=== PATIENT | male | born 1955 | race African-American/Black ===

== ENCOUNTER 2016-07-17 20:35 | Emergency (ER) | payer OTHER ==
[2016-07-17 21:00] VITALS: BP 125/90; PULSE 94; TEMP 97.8; BMI 32.3
--- NOTE | 2016-07-17 21:00 | PDOC ---
*Physical Exam - Vital Signs Last Vital Signs Temp Pulse Resp BP Pulse Ox 97.8 F 94 H 20 125/90 98 07/17/16 20:45 07/17/16 20:45 07/17/16 20:45 07/17/16 20:45 07/17/16 20:45 - Physical Exam Comments: 07/17/16 20:47. 6o yo M presents to the ER c/o uncontrolled DM. Pt was seen at [facility] ([phone]) today and was sent to the ER with lab results of: Glucose(non fasting): >500mg/dl HB.1 g/dl Pt says he also felt dizzy (room slowly spinning) which started ~10 mins prior to his arrival to the ER. Pt denies any lightheadedness, garcia, visual disturbance, cp, sob, abd pain, polydipsia, polyphagia, polyuria PMD: Dr. Ann Marie Camacho [phone] Pt's PMD recently relocated to the and is inconvenient for him and will need a PMD and Endocrinology referral DM x2 years: currently on Metformin 500HCL bid/took 1000mg this evening Hyperlipidemia: Atrovastin 20mg dq HTN: Amlodipine 10-20mg qd ASA 81mg ED Treatment Course - LABORATORY CBC & Chemistry Diagram: 07/17/16 21:15 07/17/16 21:15 *DC/Admit/Observation/Transfer Diagnosis at time of Disposition: Hyperglycemia due to type 2 diabetes mellitus - Discharge Dispostion Disposition: HOME - Referrals Referrals: Christel Niño MD [Staff Physician] - Nathanael Booth MD [Staff Physician] - - Patient Instructions Printed Discharge Instructions: DI for Hyperglycemia -- Adult Additional Instructions: Please follow up with Dr. Niño and Dr. Booth for further evalulation and management of your diabetes. You must follow up within the next 2 days. If you experience any shortness of breath, chest pain, headache, dizziness, or any new or worsening symptoms, please return to the ER. - Post Discharge Activity Work/School Note: Back to Work
[2016-07-17 21:25] LABS: BASOPHIL 0.9 % (0-2.0); EOSINOPHIL 1.5 % (0-4.5); MCH 26.8 pg (25.7-33.7); NEUTROPHILS 58.4 % (42.8-82.8); RDW 14.7 % (11.9-15.9)
[2016-07-17 21:27] LABS: URINE APPEARANCE CLEAR; URINE BILIRUBIN NEGATIVE (NEGATIVE); URINE COLOR COLORLESS; URINE GLUCOSE (UA) 3+ (NEGATIVE); URINE KETONE NEGATIVE (NEGATIVE); URINE LEUK ESTERASE NEGATIVE (NEGATIVE); URINE NITRITE NEGATIVE (NEGATIVE); URINE PROTEIN NEGATIVE (NEGATIVE); URINE UROBILINOGEN NEGATIVE E.U./dl (0.2-1.0)
--- NOTE | 2016-07-17 21:42 | PDOC ---
History of Present Illness - General Chief Complaint: Blood Sugar Problem Stated Complaint: SUGAR PROBLEMS Time Seen by Provider: 07/17/16 20:46 - History of Present Illness Initial Comments: 07/17/16 21:34 CHIEF COMPLAINT: elevated sugar HISTORY OF PRESENT ILLNESS: 60 yo M with hx of NIDDM, HTN sent from urgent care for elevated sugar in urine. Patient states he checks his blood sugar every day and recently it has gotten higher. He went to urgent care today and had a BGM of 280 and glucose in his urine and was sent to this ED for evaluation. He denies any nausea, SOB, chest pain, dizziness, headache, changes in vision. No recent travel or sick contacts. PAST MEDICAL HISTORY: Denies past medical history FAMILY HISTORY: Denies SOCIAL HISTORY: Denies tobacco, alcohol, illicit drug use. SURGICAL HISTORY: Denies ALLERGIES: No known drug allergies REVIEW OF SYSTEMS General/Constitutional: Denies fever or chills. Denies weakness, weight change. HEENT: Denies change in vision. Denies ear pain or discharge. Denies sore throat. Cardiovascular: Denies chest pain or shortness of breath. Respiratory: Denies cough, wheezing, or hemoptysis. Gastrointestinal: Denies nausea, vomiting, diarrhea or constipation. Denies rectal bleeding. Genitourinary: Denies dysuria, frequency, or change in urination. Musculoskeletal: Denies joint or muscle swelling or pain. Denies neck or back pain. Skin and breasts: Denies rash or easy bruising. Neurologic: Denies headache, vertigo, loss of consciousness, or loss of sensation. PHYSICAL EXAM General Appearance: Well-appearing, appropriately dressed. No apparent distress. HEENT: EOMI, PERRLA, normal voice,=. No conjunctival pallor. No photophobia, scleral icterus. Respiratory/Chest: Lungs CTAB. Cardiovascular: RRR. S1, S2. Gastrointestinal/Abdominal: Normal bowel sounds. Abdomen soft, non-distended. No tenderness or rebound tenderness. Musculoskeletal/Extremities: Normal inspection. FROM of all extremities, normal capillary refill. No tenderness to extremities, pedal edema, swelling, erythema or deformity. Integumentary: Appropriate color, dry, warm. 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 Fully oriented, alert. Appropriate mood/affect. Motor strength 5/5. No appreciable EOM palsy, facial droop or sensory deficit. 07/18/16 06:12 07/18/16 06:14 Past History - Past Medical History Allergies/Adverse Reactions: Allergies Allergy/AdvReac Type Severity Reaction Status Date / Time No Known Allergies Allergy Verified 07/17/16 20:41 Home Medications: Ambulatory Orders Aspirin Coated [Ecotrin -] 81 mg PO DAILY 07/23/13 Fenofibrate [Lipofen] 150 mg PO DAILY 07/23/13 Olmesartan/Hydrochlorothiazide [Benicar Hct 20-12.5 mg Tablet] 1 each PO DAILY 07/23/13 Pantoprazole Sodium 20 mg PO DAILY 07/23/13 Sitagliptin Phos/Metformin HCl [Janumet 50-500 mg Tablet] 1 each PO BID Diabetes: Yes HTN: Yes Hypercholesterolemia: Yes - Surgical History Abdominal Surgery: Yes Appendectomy: Yes - Psycho/Social/Smoking Cessation Hx Anxiety: No Suicidal Ideation: No Smoking Status: No Smoking History: Never smoked Number of Cigarettes Smoked Daily: 0 *Physical Exam - Vital Signs Last Vital Signs Temp Pulse Resp BP Pulse Ox 97.8 F 94 H 20 125/90 98 07/17/16 20:45 07/17/16 20:45 07/17/16 20:45 07/17/16 20:45 07/17/16 20:45 ED Treatment Course - LABORATORY CBC & Chemistry Diagram: 07/17/16 21:15 07/17/16 21:15 - ADDITIONAL ORDERS Additional order review: 07/17/16 21:15 RBC 5.52 MCV 81.0 MCHC 33.0 RDW 14.7 MPV 11.0 Neutrophils % 58.4 Lymphocytes % 31.5 D Monocytes % 7.7 Eosinophils % 1.5 D Basophils % 0.9 Medical Decision Making - Medical Decision Making 07/18/16 06:14 60 yo M with hx of NIDDM, HTN sent from urgent care for elevated sugar in urine. 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 Patient verbalized understanding and agrees to plan. 07/18/16 06:15 *DC/Admit/Observation/Transfer Diagnosis at time of Disposition: Hyperglycemia due to type 2 diabetes mellitus Qualifiers: Diabetes mellitus mcfp insulin use: without mcfp use Qualified Code(s ): E11.65 - Type 2 diabetes mellitus with hyperglycemia - Discharge Dispostion Admit: No - Referrals Referrals: Christel Niño MD [Staff Physician] - Nathanael Booth MD [Staff Physician] - - Patient Instructions Printed Discharge Instructions: DI for Hyperglycemia -- Adult Additional Instructions: Please follow up with Dr. Niño and Dr. Booth for further evalulation and management of your diabetes. You must follow up within the next 2 days. If you experience any shortness of breath, chest pain, headache, dizziness, or any new or worsening symptoms, please return to the ER. - Post Discharge Activity Work/School Note: Back to Work
[2016-07-17 21:58] LABS: ALBUMIN 4.2 g/dl (3.4-5.0); ALK PHOS 81 U/L (45-117); ANION GAP 10 (8-16); BILIRUBIN,TOTAL 1.2 mg/dL (0.2-1.0); CALCIUM 9.4 mg/dL (8.5-10.1); CO2 28 mmol/L (21-32); CREATININE 1.1 mg/dL (0.7-1.3); GLUCOSE,RANDOM 252 mg/dL (74-106); SGOT/AST 23 U/L (15-37); SGPT/ALT 36 U/L (12-78); TOT PROT 7.8 g/dl (6.4-8.2)
[2016-07-17 22:03] LABS: PLATELET COUNT 126 K/MM3 (134-434); URINE BLOOD 1+ (NEGATIVE)
[2016-07-17 22:04] LABS: PLATELET COMMENT2 FEW LARGE PLTS; PLATELET ESTIMATE SLT DECREASED (NORMAL); URINE WBC <1 /hpf (3-5)
[2016-07-17] MEDS ORDERED: POTASSIUM CHLORIDE TABS 20 MEQ TABLET.ER (FP) PO ONE ×3 (22:30→22:40)
== END 2016-07-17 22:51 | disposition home or self-care (01) ==
LOC: JER 20:35
DX: E11.65 Type 2 diabetes mellitus with hyperglycemia (principal); Z79.84 Long term (current) use of oral hypoglycemic drugs; I10 Essential (primary) hypertension
CPT/HCPCS: 36415; 80053; 81003; 81015; 85025; 99281-25

== ENCOUNTER 2018-02-28 20:24 | Emergency (ER) | payer OTHER ==
[2018-02-28 20:34] VITALS: TEMP 97.6; BMI 32.3
--- NOTE | 2018-02-28 20:34 | PDOC ---
Rapid Medical Evaluation Time Seen by Provider: 02/28/18 20:32 Medical Evaluation: Allergies Allergy/AdvReac Type Severity Reaction Status Date / Time No Known Allergies Allergy Verified 07/17/16 20:41 02/28/18 20:32 I have performed a brief in-person evaluation of the patient The patient presents with a chief complaint of: elevated blood sugar. Patient reports elevated blood sugar of 300s at 8pm. Denies thirst, increase urination, dizziness or blurred vision Pertinent physical exam findings are: NAD even and unlabored breathing heart s1s2 no pedal edema I have ordered the following: labs, fingerstick urinalysis The patient will proceed to the ED for further evaluation.
[2018-02-28 21:14] LABS: EOS % 3.6 % (0-4.5); HEMATOCRIT 51.2 % (35.4-49); HEMOGLOBIN 16.6 GM/dL (11.7-16.9); MCH 26.9 pg (25.7-33.7); MCHC 32.5 g/dl (32.0-35.9); MEAN CELL VOLUME 82.7 fl (80-96); MEAN PLT VOLUME 11.1 fl (7.5-11.1); MONO % 6.4 % (3.8-10.2); RDW 14.8 % (11.9-15.9); WHITE BLOOD COUNT 5.1 K/mm3 (4.0-10.0)
[2018-02-28 21:44] LABS: ALBUMIN 4.4 g/dl (3.4-5.0); ALK PHOS 95 U/L (45-117); ANION GAP 14 MMOL/L (8-16); BILIRUBIN,TOTAL 0.5 mg/dL (0.2-1); BLOOD UREA NITROGEN 9 mg/dL (7-18); CALCIUM 10.6 mg/dL (8.5-10.1); CHLORIDE 98 mmol/L (98-107); CO2 25 mmol/L (21-32); CREATININE 1.1 mg/dL (0.55-1.3); POTASSIUM 3.4 mmol/L (3.5-5.1); SGOT/AST 17 U/L (15-37); SGPT/ALT 31 U/L (13-61); SODIUM 136 mmol/L (136-145); TOT PROT 8.8 g/dl (6.4-8.2)
[2018-02-28 21:46] LABS: GLUCOSE,RANDOM 301 mg/dL (74-106)
--- NOTE | 2018-02-28 21:48 | PDOC ---
History of Present Illness - General Chief Complaint: Blood Sugar Problem Stated Complaint: DIABETIC, LOWER SUGAR Time Seen by Provider: 02/28/18 20:32 - History of Present Illness Initial Comments: 62 yo M w a hx of DM, CAD, hypertension, and hypercholesterolemia is here after a self measured glucose reading around 300. Here in the ED the patients glucose is 301. Patient came into the ED bc he thought his sugar is too high. He says his usual daily blood sugar readings are around 150, but today it was high. He has no hx of DKA or HHNS. He says his only diabetes medication is metformin and he has been compliant with his meds. He has no physical complaints. Denies headache, abdominal pain, SOB, difficulty breathing, chest pain, back pain, visionary changes, polyuria, polydipsia, dysuria, frequency, urgency, recent fevers, chills, or infections. Social hx: patient denies smoking, drinking or illicit drug use. Past History - Past Medical History Allergies/Adverse Reactions: Allergies Allergy/AdvReac Type Severity Reaction Status Date / Time No Known Allergies Allergy Verified 02/28/18 20:34 Home Medications: Ambulatory Orders Aspirin Coated [Ecotrin -] 81 mg PO DAILY 07/23/13 Fenofibrate [Lipofen] 150 mg PO DAILY 07/23/13 Olmesartan/Hydrochlorothiazide [Benicar Hct 20-12.5 mg Tablet] 1 each PO DAILY 07/23/13 Pantoprazole Sodium 20 mg PO DAILY 07/23/13 Sitagliptin Phos/Metformin HCl [Janumet 50-500 mg Tablet] 1 each PO BID COPD: No Diabetes: Yes HTN: Yes Hypercholesterolemia: Yes - Surgical History Abdominal Surgery: Yes Appendectomy: Yes - Suicide/Smoking/Psychosocial Hx Smoking Status: No Smoking History: Never smoked Number of Cigarettes Smoked Daily: 0 Review of Systems - Review of Systems Comments:: 02/28/18 22:09 CONSTITUTIONAL: Absent: fever, chills, diaphoresis, generalized weakness, malaise, loss of appetite HEENT: Absent: rhinorrhea, nasal congestion, throat pain, throat swelling, difficulty swallowing, mouth swelling, ear pain, eye pain, visual Changes CARDIOVASCULAR: Absent: chest pain, syncope, palpitations, irregular heart rate, lightheadedness , peripheral edema RESPIRATORY: Absent: cough, shortness of breath, dyspnea with exertion, orthopnea, wheezing, stridor, hemoptysis GASTROINTESTINAL: Absent: abdominal pain, abdominal distension, nausea, vomiting, diarrhea, constipation, melena, hematochezia GENITOURINARY: Absent: dysuria, frequency, urgency, hesitancy, hematuria, flank pain, genital pain MUSCULOSKELETAL: Absent: myalgia, arthralgia, joint swelling SKIN: Absent: rash, itching, pallor HEMATOLOGIC/IMMUNOLOGIC: Absent: easy bleeding, easy bruising, lymphadenopathy, frequent infections ENDOCRINE: Absent: unexplained weight gain, unexplained weight loss, heat intolerance, cold intolerance NEUROLOGIC: Absent: headache, focal weakness or paresthesias, dizziness, unsteady gait, seizure, mental status changes, bladder or bowel incontinence PSYCHIATRIC: Absent: anxiety, depression, suicidal or homicidal ideation, hallucinations. *Physical Exam - Vital Signs Last Vital Signs Temp Pulse Resp BP Pulse Ox 97.6 F 106 H 18 176/103 H 99 02/28/18 20:31 02/28/18 20:31 02/28/18 20:31 02/28/18 20:31 02/28/18 20:31 - Physical Exam Comments: 02/28/18 22:09 GENERAL: Well developed, well nourished. Awake and alert. No acute distress. HEENT: Normocephalic, atraumatic. PERRLA, EOMI. No conjunctival pallor. Sclera are non- icteric. Moist mucous membranes. Oropharynx is clear. NECK: Supple. Full ROM. No JVD. No thyromegaly. No lymphadenopathy. CARDIOVASCULAR: Regular rate and rhythm. No murmurs, rubs, or gallops. Distal pulses are 2+ and symmetric. PULMONARY: No evidence of respiratory distress. Lungs clear to auscultation bilaterally. No wheezing, rales or rhonchi. ABDOMINAL: Soft. Non-tender. Non-distended. No rebound or guarding. No organomegaly. Normoactive bowel sounds. MUSCULOSKELETAL Normal range of motion at all joints. No bony deformities or tenderness. No CVA tenderness. EXTREMITIES: No cyanosis. No clubbing. No edema. No calf tenderness. SKIN: Warm and dry. Normal capillary refill. No rashes. No jaundice. NEUROLOGICAL: Alert, awake, appropriate. Cranial nerves 2-12 intact. No deficits to light touch in face, upper extremities and lower extremities. No motor deficits in the in face, upper extremities and lower extremities. Normoreflexic in the upper and lower extremities. Normal speech. Gait is normal without ataxia. PSYCHIATRIC: Cooperative. Good eye contact. Appropriate mood and affect. ED Treatment Course - LABORATORY CBC & Chemistry Diagram: 02/28/18 21:07 02/28/18 21:07 - ADDITIONAL ORDERS Additional order review: Laboratory Results 02/28/18 02/28/18 21:07 21:06 PT with INR Cancelled INR Cancelled PTT (Actin FS) Cancelled Sodium 136 Potassium 3.4 L Chloride 98 Carbon Dioxide 25 Anion Gap 14 BUN 9 Creatinine 1.1 Creat Clearance w eGFR > 60 Random Glucose 301 H* Calcium 10.6 H Total Bilirubin 0.5 AST 17 ALT 31 Alkaline Phosphatase 95 Total Protein 8.8 H Albumin 4.4 02/28/18 21:07 RBC 6.20 H MCV 82.7 MCHC 32.5 RDW 14.8 MPV 11.1 Neutrophils % 52.0 Lymphocytes % 37.0 Monocytes % 6.4 Eosinophils % 3.6 D Basophils % 1.0 Medical Decision Making - Medical Decision Making 62 yo M w a hx of DM, CAD, hypertension, and hypercholesterolemia is here with elevated glucose and hypertension. He is asymptomatic. -low suspicion for DKA and HHNS. - will do basic labs and UA. Labs remarkable for low potassium. Plan: Replete potassium and administer valsartan for patient's BP. If BP normalizes, patient will be stable for DC [facility] pcp FU. *DC/Admit/Observation/Transfer Diagnosis at time of Disposition: High blood sugar, Hypertension, Diabetes - Discharge Dispostion Disposition: HOME Condition at time of disposition: Stable Decision to Admit order: No - Referrals Referrals: Rom Abreu MD [Staff Physician] - - Patient Instructions Printed Discharge Instructions: DI for Hyperglycemia -- Adult, Treatments for High Blood Pressure: More Than Just Taking a Pill, Recommendations to Help Prevent High Blood Pressure, Hypertension (Alternative Therapy), The DASH Diet, DASH Diet Helps Maintain a Healthy Blood Pressure Additional Instructions: You came into the ER with high blood sugar and high blood pressure. We believe you were dehydrated and gave you some meds to help your blood pressure and your high sugar level. It is extremely important that you schedule an appointment with your primary care doctor in the next 3 to 5 days to get your blood pressure and sugar under control. The DASH diet is a great diet to help you live a better healthier life. A packet explaining the DASH diet is attached. Please come back to the ER if you develop a high fever, have severe abdominal pain, shortness of breath or difficulty breathing, or any other new or worsening concerns. Thank you for coming to the [facility] ER. We hope you feel better soon. Print Language: BURKINAN - Post Discharge Activity
--- NOTE | 2018-02-28 21:50 | PDOC ---
Attending Attestation - HPI HPI: This patient is a 62 year old male, with PMHx of DM, HTN, CAD, HLD, who presents with elevated glucose of 250 glucose. Patient states that his blood glucose is usually in the 150 range. Today in the ED his blood glucose measured 301. He denies any other current complaints. Denies any recent fever, chills, recent illness abdominal , shortness of breath , polyuria, dysuria, frequency, or urgency. <Gayle Wagner - Last Filed: 02/28/18 22:28> - Resident Resident Name: Alejandro Robertson - ED Attending Attestation I have performed the following: I have examined & evaluated the patient, The case was reviewed & discussed with the resident, I agree w/resident's findings & plan - Physicial Exam PE: 03/02/18 00:18 Agree with resident exam - Medical Decision Making 02/28/18 23:39 Pt's labs are normal. He was hydrated and treated with his AntiHTN meds in the ER. Pt feels better with hydration. Pt will be sent home with diet control. Follow with PMD and he will discuss replacing metformin with insulin or other oral medication. <Natasha Perez - Last Filed: 03/02/18 00:18>
[2018-02-28 21:52] LABS: URINE APPEARANCE CLEAR; URINE BILIRUBIN NEGATIVE (<2.0 mg/dL); URINE COLOR COLORLESS; URINE GLUCOSE (UA) 3+ (NEGATIVE); URINE KETONE TRACE (NEGATIVE); URINE LEUK ESTERASE NEGATIVE (NEGATIVE); URINE NITRITE NEGATIVE (NEGATIVE); URINE PROTEIN NEGATIVE (NEGATIVE); URINE UROBILINOGEN NEGATIVE mg/dL (0.2-1.0)
[2018-02-28] MEDS ORDERED: SODIUM CHLORIDE 0.9% 500 ML INFUS.BAG IV ONE (21:55)
[2018-02-28] MEDS ORDERED: VALSARTAN 40 MG TABLET (FP) PO ONE (22:05)
[2018-02-28] MEDS ORDERED: POTASSIUM CHLORIDE TABS 20 MEQ TABLET.ER (FP) PO ONE ×2 (22:07→22:20)
[2018-02-28 22:14] LABS: PLATELET COUNT 144 K/MM3 (134-434)
[2018-02-28 22:19] LABS: PLATELET ESTIMATE DECREASED
[2018-02-28] MEDS ORDERED: VALSARTAN 80 MG TABLET (UD) ONE (22:20)
[2018-02-28 22:49] LABS: ACETONE SERUM NEGATIVE (NEGATIVE)
[2018-02-28 23:39] VITALS: BP 157/97; PULSE 68
== END 2018-02-28 23:48 | disposition home or self-care (01) ==
LOC: JER 20:24
DX: E11.65 Type 2 diabetes mellitus with hyperglycemia (principal); Z79.84 Long term (current) use of oral hypoglycemic drugs; I10 Essential (primary) hypertension; E78.00 Pure hypercholesterolemia, unspecified; E87.6 Hypokalemia
CPT/HCPCS: 36415; 80053; 81003; 82009; 82962; 85025; 99283-25

== ENCOUNTER 2022-05-07 04:17 | Day surgery (SDC) | payer OTHER ==
[2022-05-03 13:45] VITALS: BMI 31.5
[2022-05-07 08:27] VITALS: TEMP 97.5
[2022-05-07 09:19] VITALS: BP 120/76; PULSE 71; RESP 18
== END 2022-05-07 10:15 | disposition home or self-care (01) ==
LOC: JASU-ENDO 04:17
PROVIDERS: ATTEND Internal Medicine Gastroenterology
PROC: 0DBN8ZX Excision of Sigmoid Colon, Via Natural or Artificial Opening Endoscopic, Diagnostic (ICD-10-PCS; principal; 2022-05-07 08:00)
DX: Z12.11 Encounter for screening for malignant neoplasm of colon (principal); K63.5 Polyp of colon
CPT/HCPCS: 88305-TC

== ENCOUNTER 2023-12-04 04:21 | Day surgery (SDC) | payer OTHER ==
[2023-11-28 12:26] VITALS: BMI 30.9
[2023-12-04] MEDS ORDERED: LIDOCAINE VISCOUS 2% ORAL/TOP 15 ML UNIT-DOSE CUP ONE (08:06)
[2023-12-04 08:47] VITALS: TEMP 97.7
[2023-12-04 09:24] VITALS: BP 135/91; PULSE 70; RESP 19
== END 2023-12-04 09:26 | disposition home or self-care (01) ==
LOC: JASU-ENDO 04:21
PROVIDERS: ATTEND Internal Medicine Gastroenterology
PROC: 0DB68ZX Excision of Stomach, Via Natural or Artificial Opening Endoscopic, Diagnostic (ICD-10-PCS; 2023-12-04)
PROC: 0DB98ZX Excision of Duodenum, Via Natural or Artificial Opening Endoscopic, Diagnostic (ICD-10-PCS; principal; 2023-12-04 08:00)
DX: K29.50 Unspecified chronic gastritis without bleeding (principal)
CPT/HCPCS: 88305-TC; 88342-TC